=== PATIENT | male | born 1995 | race Two or more races ===

== ENCOUNTER 2023-09-15 16:51 | Emergency (ER) | payer SELFPAY ==
[2023-09-15 17:01] VITALS: BP 134/85; PULSE 85; RESP 16; TEMP 36.8; O2SAT 96; BMI 29.3
--- NOTE | 2023-09-15 17:03 | ED.GENADULT ---
HPI - General Adult General Chief complaint: Back Pain/Injury Stated complaint: back pain Time Seen by Provider: 09/15/23 17:09 Source: patient Mode of arrival: ambulatory Limitations: no limitations History of Present Illness HPI narrative: 28 yo m presents with atraumatic lower left back pain X 3 days w/ radiation to LLE. States he works at [employer] and is standing a lot and this may be contributing to pain. Pain worse w/ movement better at rest. Denies nausea, vomiting, diarrhea, cp, sob, numbness, tingling, urinary/bowel incontinence/ retention, saddle paresthesias, weakness, fevers, chills, abd pain. No associated truama. Related Data Allergies Allergy/AdvReac Type Severity Reaction Status Date / Time No Known Allergies Allergy Verified 09/15/23 17:01 Review of Systems Review of Systems: Constitutional : No Weight loss, No Fever, No Chills, ENT/Mouth : No Hearing loss, No Ear Pain, No Nasal Congestion, No Sinus Pain, No Hoarseness, No sore throat, No Rhinorrhea, No Swallowing Difficulty Cardiovascular : No Chest Pain, No SOB Respiratory : No Cough, No Dyspnea Gastrointestinal : No Nausea, No Vomiting, No Diarrhea, No abdominal Pain, No Hematochezia, No Melena Genitourinary : No Dysuria, No Urinary Frequency, No Hematuria, No Urinary Incontinence, Musculoskeletal : positive back pain Skin : No Skin Lesions, No rash Neuro : No Weakness, No Numbness, No Paresthesias, no loss of bowel or bladder incontinence, no saddle anesthesia Yes all other systems are reviewed and are negative [facility] Past Medical History Attestation statement: The following information was validated with the patient. Source: old records reviewed and nursing notes reviewed Physical Exam ED Vital Signs: Vital Signs - 24 hr 09/15/23 17:01 Temperature 98.3 F Pulse Rate 85 Respiratory Rate 16 Blood Pressure 134/85 Pulse Oximetry 96 Oxygen Delivery Method Room Air BMI result Body Mass Index 29.3 vss Appearance: Alert.? Oriented X3.? No acute distress.? Head: Normocephalic, atraumatic, no step-offs or deformities Eyes: Pupils equal, round and reactive to light.? CVS: Normal heart rate and rhythm.? Pulses normal.? Respiratory: No respiratory distress.? Breath sounds normal.? Abdomen: Soft and nontender.? Skin: Skin warm and dry.? Normal skin color.? Normal skin turgor.? Extremities: No lower extremity edema.? No calf ttp. 5/5 strength to bilateral upper and lower extremities Back: No midline tenderness, no C-spine tenderness, full range of motion, no CVA tenderness bilaterally + L sided lumbar L3-L5 paraspinous TTP on exam. No midline pain. Full rom to back, pinless Neuro: Oriented X 3.? No motor deficit.? No sensory deficit. CN 2-12 intact . Ambulating w/ steady gait normal coordination. No saddle paresthesias. Course Course Course Narrative: This is an RME: Additional HPI, ROS, PE not included below will be deferred to primary provider. 28 yo m presents with atraumatic lower left back pain X 3 days w/ radiation to LLE. States he works at [employer] and is standing a lot and this may be contributing to pain. Pain worse w/ movement better at rest. Denies nausea, vomiting, diarrhea, cp, sob, numbness, tingling, urinary/bowel incontinence/ retention, saddle paresthesias, weakness, fevers, chills, abd pain. No associated truama. Reevaluation(s) Reevaluation #1: Patient will be discharged home with cyclobenzaprine, naproxen, Lidoderm patches. Educated patient on diagnosis and treatment plan, answered all question, patient verbalizes understanding. At this time patient will be discharged home, advised to return with new or worsening symptoms. Educated on worrisome signs and symptoms and when to return. At this time I feel comfortable discharge home. Time: 17:11 Medical Decision Making Medical Decision Making [facility] Narrative: 1708 28 year old male presents w/ atraumatic L sided lower back pain w/ radiation to LLE PE + L sided lumbar L3-L5 paraspinous TTP on exam. No midline pain. Full rom to back, pinless.Oriented X 3.? No motor deficit.? No sensory deficit. CN 2-12 intact . Ambulating w/ steady gait normal coordination. No saddle paresthesias. History and physical exam concerning for lumbar radiculopathy versus lumbar paraspinous muscle spasms versus sciatica. Unlikely cauda equina, cord compression, epidural abscess. No signs of infection. Plan will discharge from the waiting room with pain control, also relaxers. Differential Diagnosis Differential Diagnoses: The differential diagnosis associated with the presentation includes History and physical exam concerning for lumbar radiculopathy versus lumbar paraspinous muscle spasms versus sciatica. Unlikely cauda equina, cord compression, epidural abscess. No signs of infection. Admission/Observation Consideration of admission/observation: Escalation of care including admission/observation considered Unlikely Prescription Management I considered prescription management with: Pain Medication and Other (Cyclobenzaprine) Discharge Plan Discharge Clinical Impression: Lumbar radiculopathy Patient Disposition: Home, Self-Care Instructions: Back Pain (ED), Lumbar Radiculopathy (ED) Additional Instructions: Take your medications as prescribed. If you were prescribed antibiotics today, it is important that you take your medication to their entirety, do not skip any doses, do not finish them early. Follow-up with your primary care provider this week. Return to the emergency department with new or worsening symptoms. Such as fevers, chills, chest pain, shortness of breath, nausea, vomiting, dizziness, headache, vision changes, lethargy In case of emergency call 911 Cyclobenzaprine is a muscle relaxer it is strong and can make you drowsy. Do not take with sedatives or any other muscle relaxers or alcohol. Do not drive or operate machinery while taking this. Do not share this medication with anyone. Referrals: [facility] [Provider Group] - 1 day Physician,Freddy Feliciano [Primary Care Provider] - 2 days Stand Alone Forms: Work/School Release
[2023-09-15 17:19] VITALS: BP 0/0; PULSE 0; RESP 0; TEMP -17.7; TEMP 0; O2SAT 0
== END 2023-09-15 17:26 | disposition home or self-care (01) ==
PROVIDERS: Emergency Provider Student in an Organized Health Care Education/Training Program
DX: M54.16 Radiculopathy, lumbar region (principal); M54.50 Low back pain, unspecified
CPT/HCPCS: 99282; 99283

== ENCOUNTER 2023-09-23 22:53 | Emergency (ER) | payer SELFPAY ==
[2023-09-23 23:28] VITALS: BP 135/70; PULSE 85; RESP 16; TEMP 37.1; O2SAT 97; BMI 32.6
--- NOTE | 2023-09-24 04:08 | ED_ITS ---
HPI - Back Pain/Injury General Chief Complaint: Extremity Problem Stated Complaint: low back pain Time Seen by Provider: 09/24/23 02:27 Source: patient Mode of arrival: ambulatory History of Present Illness HPI Narrative: 28-year-old male reports lower back discomfort, denies any history of fever, chills or bowel or bladder dysfunction and states that he has to stand for several hours and has reported that as some discomfort in his ankle and knee. Related Data Previous Rx's ?Medication ?Instructions ?Recorded cyclobenzaprine 10 mg tablet 10 mg PO BEDTIME PRN muscle spasm 09/15/23 #7 tabs lidocaine 5 % topical patch 1 patch topical DAILY PRN pain #15 09/15/23 ea cyclobenzaprine 5 mg tablet 5 mg PO BEDTIME PRN muscle spasm 09/24/23 #5 tabs ketorolac 10 mg tablet 10 mg PO Q6H PRN pain #20 tabs 09/24/23 Allergies Allergy/AdvReac Type Severity Reaction Status Date / Time No Known Allergies Allergy Verified 09/23/23 23:29 Review of Systems Review of Systems: Pertinent positives and negatives as stated in HPI [facility] Past Medical History Source: nursing notes reviewed Social History Social History Advance Directives: No Advance Directives Information Provided: Yes Do you have a plan to hurt others: No Plan Physical Exam Vital Signs: Vital Signs: Last Vital Signs Temp 98.7 F 09/23/23 23:28 Pulse 85 09/23/23 23:28 Resp 16 09/23/23 23:28 BP 135/70 09/23/23 23:28 Pulse Ox 97 09/23/23 23:28 O2 Del Method Room Air 09/23/23 23:28 BMI result Body Mass Index 32.6 VITAL SIGNS: Reviewed. GENERAL: Well developed, well nourished, in no acute distress. HEAD: Normocephalic/atraumatic EYES: PERRLA, EOMI LUNGS: Normal breath sounds. No adventitious sounds or accessory muscle use. SpO2<97> CARDIOVASCULAR: Regular rate and rhythm without noted murmurs ABDOMEN: Soft, non-tender, non-distended with bowel sounds. BACK: No midline vertebral tenderness to palpation or step-offs noted. MUSCULOSKELETAL: No tenderness, deformities, or effusions noted on gross inspection. EXTREMITIES: No cyanosis, clubbing or edema. SKIN: Inspection of the skin reveals no rashes NEUROLOGIC: Alert and oriented x 4. Strength and sensation to light touch were grossly intact x 4. Medical Decision Making Medical Decision Making MDM Narrative: 28-year-old male with history and clinical presentation,DDX: Chronic back pain, no evidence to suggest cord compression/cauda equina/infection. Patient provided with combination analgesics, lidocaine patch and muscle relaxant and discharged home. Differential Diagnosis Differential Diagnoses: The differential diagnosis associated with the presentation includes Please see the discussion above Admission/Observation Consideration of admission/observation: Escalation of care including admission/observation considered Please see the discussion above Discharge Plan Discharge Clinical Impression: Back pain Patient Disposition: Home, Self-Care Instructions: Back Pain (ED) Additional Instructions: 1. Tylenol 1000 mg, orally, every 6 hours as needed for pain control. Do not exceed 4000 mg within 24 hours. 2. Lidocaine patch, apply to area of maximal pain as directed on the outside packaging. 3. Please take remaining prescribed medications as directed. 4. Please follow-up with your primary care doctor and obtain a referral to initiate physical therapy. Return to the ER for any worsening symptoms. Prescriptions: New ketorolac 10 mg tablet 10 mg PO Q6H PRN (Reason: pain) Qty: 20 0RF Rx Instructions: maximum total duration of 5 days from all oral, intranasal, or parenteral formulations cyclobenzaprine 5 mg tablet 5 mg PO BEDTIME PRN (Reason: muscle spasm) Qty: 5 0RF Discontinued naproxen 500 mg tablet 500 mg PO BID PRN (Reason: pain) Qty: 14 0RF Rx Instructions: Take with food No Action cyclobenzaprine 10 mg tablet 10 mg PO BEDTIME PRN (Reason: muscle spasm) Qty: 7 0RF lidocaine 5 % adhesive patch,medicated 1 patch topical DAILY PRN (Reason: pain) Qty: 15 0RF Rx Instructions: leave on most painful area for up to 12 hrs Print Language: Cambodian
[2023-09-24 04:45] VITALS: BP 121/79; PULSE 91; RESP 16; TEMP 36.4; O2SAT 99
[2023-09-24] MEDS: Cyclobenzaprine HCl 5 MG TABLET PO (04:50)
[2023-09-24] MEDS: Acetaminophen 325 MG TABLET 975 MG PO (04:50)
[2023-09-24] MEDS: Lidocaine 4 % Patch ADH..PATCH 1 PATCH TRANSDERMA (04:50)
[2023-09-24] MEDS: Ketorolac Tromethamine 15 MG/ML VIAL IM (04:51)
[2023-09-24 04:58] VITALS: BP 121/79; PULSE 91; RESP 16; TEMP 36.4; O2SAT 97
== END 2023-09-24 04:59 | disposition home or self-care (01) ==
PROVIDERS: Emergency Provider Student in an Organized Health Care Education/Training Program
DX: M54.50 Low back pain, unspecified (principal)
CPT/HCPCS: 96372; 99284; J1885